=== PATIENT | male | born 1945 | race Caucasian/White ===

== ENCOUNTER → 2017-03-08 | Outpatient (CLI) | payer OTHER, BC ==
--- NOTE | 2017-03-09 06:32 | DI ---
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 Previous Exam: Plain films of lumbar spine performed January 01, 2012 Findings: Multiplanar MR images are obtained through the lumbar spine without contrast. Vertebral body height is preserved. There is some mild endplate edema noted at multiple levels. Visualized portions of the distal spinal cord is normal with a normal conus at the L1 level. The major vascular flow voids are unremarkable. Paraspinal musculature is unremarkable. There are multiple bilateral simple cysts. The larger on the left, and the largest of those measures 3.3 cm in diameter. There is some facet arthropathy noted. Individual intervertebral disc spaces: T12/L1: There is disc desiccation, a broad-based disc bulge and annular fissuring with bilateral face t hypertrophy. There is moderate right and mild left neuroforaminal narrowing. L1/2: There is disc desiccation, annular fissuring and a broad-based disc bulge contributing to moder ate to severe right and moderate left neural foraminal narrowing. L2/3: There is disc desiccation, a broad-based disc bulge and some facet and ligamentum flavum hypert rophy contributing to moderate central canal stenosis with moderate to severe right and moderate to s evere left neural foraminal narrowing. L3/4: There is disc desiccation, annular fissuring and a broad-based disc bulge with facet and ligame ntum flavum hypertrophy contributing to moderate to severe bilateral neuroforaminal narrowing and mil d central canal stenosis. L4/5: There is disc desiccation and annular fissuring, and patient is status post left hemilaminectom y. This causes severe left and moderate right neuroforaminal narrowing. L5/S1: There is disc desiccation, annular fissuring and a broad-based central disc bulge causing no s ignificant central canal stenosis, but moderate to severe left and moderate right neural foraminal na rrowing. Impression: T12/L1: There is disc desiccation, a broad-based disc bulge and annular fissuring with bilateral face t hypertrophy. There is moderate right and mild left neuroforaminal narrowing. L1/2: There is disc desiccation, annular fissuring and a broad-based disc bulge contributing to moder ate to severe right and moderate left neural foraminal narrowing. L2/3: There is disc desiccation, a broad-based disc bulge and some facet and ligamentum flavum hypert rophy contributing to moderate central canal stenosis with moderate to severe right and moderate to s evere left neural foraminal narrowing. L3/4: There is disc desiccation, annular fissuring and a broad-based disc bulge with facet and ligame ntum flavum hypertrophy contributing to moderate to severe bilateral neuroforaminal narrowing and mil d central canal stenosis. L4/5: There is disc desiccation and annular fissuring, and patient is status post left hemilaminectom y. This causes severe left and moderate right neuroforaminal narrowing. L5/S1: There is disc desiccation, annular fissuring and a broad-based central disc bulge causing no s ignificant central canal stenosis, but moderate to severe left and moderate right neural foraminal na rrowing.
== END ==
LOC: MRI 14:00
PROVIDERS: ATTEND Orthopaedic Surgery
DX: M48.06 Spinal stenosis, lumbar region (principal); M51.16 Intervertebral disc disorders with radiculopathy, lumbar region
CPT/HCPCS: 72148